=== PATIENT | female | born 1990 | race Caucasian/White ===

== ENCOUNTER 2017-10-07 18:18 | Emergency (ER) | payer OTHER ==
[2017-10-07 18:55] LABS: URINE HCG POC HCG NEGATIVE (Negative)
[2017-10-07 19:01] LABS: BILIRUBIN,URINE NEGATIVE (NEG); GLUCOSE,URINE NEGATIVE (NEG); NITRITE,URINE NEGATIVE (NEG); PROTEIN,URINE >=300 mg/dL (NEG-TRACE)
[2017-10-07 19:03] LABS: CLARITY,URINE BLOODY; COLOR,URINE RED
[2017-10-07 19:06] LABS: BACTERIA,URINE MODERATE /HPF (0-FEW); RBC,URINE TNTC /HPF (0-2); SQUAMOUS EPITHELIAL CELL,UR MANY /LPF; WBC,URINE TNTC /HPF (0-4)
== END 2017-10-07 20:50 | disposition home or self-care (01) ==
LOC: ER 18:18
DX: N39.0 Urinary tract infection, site not specified (principal)
CPT/HCPCS: 74176; 81001; 81025; 87086; 99285-25